=== PATIENT | female | born 1960 | race Caucasian/White ===

== ENCOUNTER 2018-12-21 13:00 | Inpatient (IN) | payer OTHER ==
[~2018-12-21] VITALS: Ht 162.6 cm; Wt 113.4 kg
[~2018-12-21 13:00] MED LIST: BENTIL PO; CATAFLAM50 MG PO; GABAPENTIN100 MG PO; ORPH100T PO; PERCOCET 5/3251 TAB PO; PROTONIX40 MG PO; ULTRACET PO; XARELTO10 MG PO
== END 2018-12-29 19:58 | DRG 468 ==
LOC: SURH 12-26 07:45 → O/R 12-26 07:45 → RECOVERY 12-26 11:45 → SURH 12-26 18:30
PROVIDERS: ADMIT Orthopaedic Surgery
PROC: 0SWD0JZ Revision of Synthetic Substitute in Left Knee Joint, Open Approach (ICD-10-PCS; principal; 2018-12-26 11:45)
DX: T84.84XA Pain due to internal orthopedic prosthetic devices, implants and grafts, initial encounter (principal)